=== PATIENT | male | born 1975 | race Two or more races ===

== ENCOUNTER → 2019-02-05 | Outpatient (CLI) | payer OTHER | END | disposition home or self-care (01) | LOC: RAD 15:13 | DX: M25.561 Pain in right knee (principal) ==

== ENCOUNTER 2025-05-29 19:49 | Emergency (ER) | payer OTHER ==
[~2025-05-29] VITALS: Ht 177.8 cm; Wt 77.1 kg
[2025-05-29] MEDS ORDERED: ORPHENADRINE CITRATE 30 MG/ML AMPUL IM ONE (21:00)
[2025-05-29] MEDS ORDERED: DEXAMETHASONE SODIUM PHOSPHATE 4 MG/ML VIAL IM ONE (21:00)
[2025-05-29] MEDS ORDERED: KETOROLAC TROMETHAMINE 30 MG VIAL IM ONE (21:00)
[2025-05-29 21:31] LABS: BASO % 0.4 % (0.1-1.2); EOS # 0.10 (0.04-0.54); EOS % 1.8 % (0.7-7.0); LYMPH # 2.31 (1.18-3.74); LYMPH % 42.3 % (19.3-53.1); MEAN PLATELET VOLUME 9.20 fl (9.4-12.4); MONO # 0.41 (0.24-0.82); MONO % 7.5 % (4.7-12.5); NEUT # 2.62 (1.56-6.13); NEUT % 48.0 % (34.0-71.1); RED CELL DISTRIBUTION WIDTH 11.9 % (11.6-14.4)
[2025-05-29 21:56] LABS: ALT/SGPT 21.0 U/L (12-78); AST/SGOT 13.0 U/L (15-37); BILIRUBIN TOTAL 0.37 mg/dL (0.3-1.2); BUN CREA RATIO 23.0 (7.0-25.0); CREATININE SERUM 1.04 mg/dL (0.70-1.30); GFR 75.9; GLOBULINA 2.8 G/DL (2.4-3.5); GLUCOSE FASTING 103.0 mg/dL (65-100); OSMOLALITY SERUM 287.0 MOSM/KG (275-295)
[2025-05-29 23:34] LABS: COVID-19 AG NEGATIVE (NEGATIVE)
[2025-05-30] MEDS ORDERED: NAPROXEN500 MG PO (00:22)
== END 2025-05-30 02:13 | disposition home or self-care (01) ==
LOC: ER 19:50
PROVIDERS: Preventive Medicine Public Health & General Preventive Medicine
DX: G44.229 Chronic tension-type headache, not intractable (principal); Z91.013 Allergy to seafood; Z20.822 Contact with and (suspected) exposure to COVID-19